=== PATIENT | male | born 1995 | race Caucasian/White ===

== ENCOUNTER 2019-01-17 21:02 | Emergency (ER) | payer OTHER ==
[2019-01-17] MEDS ORDERED: Lidocaine 1% with EPINEPHrine 1:100,000 50 ML MDV INFILT ONE (22:21)
[2019-01-17] MEDS ORDERED: Bacitracin Oint 1 GM U/D Packet TOP ONE (22:55)
--- NOTE | 2019-01-17 22:57 | EDM.PDOC ---
ED HPI GENERAL MEDICAL PROBLEM - General Chief Complaint: Laceration Stated Complaint: CUT HEAD Time Seen by Provider: 01/17/19 21:52 Source of Information: Reports: Patient History Limitations: Reports: No Limitations - History of Present Illness INITIAL COMMENTS - FREE TEXT/NARRATIVE: 23 yo male present to ER with laceration to scalp. He was removing wood from an old swing set and a piece of wood hit him on the top of the head. Denies LOC but states he did see stars . denies nausea. very mild current headache. He is Up to date on his tetanus head Pain Score (Numeric/FACES): 3 - Related Data Allergies Allergy/AdvReac Type Severity Reaction Status Date / Time amoxicillin Allergy Hives Verified 01/17/19 21:45 Home Meds: Home Meds NK [No Known Home Meds] 01/17/19 [History] Past Medical History Neurological History: Reports: Concussion - Past Surgical History Musculoskeletal Surgical History: Reports: Arthroscopic Knee Social & Family History - Tobacco Use Smoking Status *Q: Never Smoker - Caffeine Use Caffeine Use: Reports: None - Recreational Drug Use Recreational Drug Use: No ED ROS GENERAL - Review of Systems Review Of Systems: See Below Constitutional: Denies: Fever, Chills Respiratory: Denies: Shortness of Breath, Wheezing Cardiovascular: Denies: Chest Pain Skin: Reports: Wound ED EXAM, SKIN/RASH Exam: See Below Exam Limited By: No Limitations General Appearance: Alert, WD/WN, No Apparent Distress Respiratory/Chest: No Respiratory Distress Cardiovascular: Regular Rate, Rhythm Skin: Warm, Dry, Intact, Other (laceration to crown of head) Location, Skin: Head ED SKIN PROCEDURES - Laceration/Wound Repair [place] Head Lac/Wound length In cm: 3 Appearance: Superficial Distal NVT: Neuro & Vascular Intact Anesthetic Type: Local Local Anesthesia - Lidocaine (Xylocaine): 1% with EPI Local Anesthetic Volume: 2cc Skin Prep: Chlorhexidine (Hibiciens), Saline Exploration/Debridement/Repair: Wound Explored, In a Bloodless Field, Explored to Base, Minimal Debridement, No Foreign Material Found Closed with: [place] # of Sutures: 8 Course - Vital Signs Last Recorded V/S: Last Vital Signs Temp 35.7 C 01/17/19 21:48 Pulse 77 01/17/19 21:48 Resp 16 01/17/19 21:48 BP 131/73 01/17/19 21:48 Pulse Ox 93 L 01/17/19 21:48 - Orders/Labs/Meds Meds: Medications Discontinued Medications Generic Name Dose Route Start Last Admin Trade Name Roxy PRN Reason Stop Dose Admin Bacitracin 1 dose 01/17/19 22:55 Bacitracin Oint 1 Gm TOP 01/17/19 22:56 ONETIME ONE Lidocaine/Epinephrine 5 ml 01/17/19 22:21 01/17/19 22:25 Xylocaine 1% With Epinephrine 1:100,000 INFILT 01/17/19 22:22 5 ml ONETIME ONE Administration Departure - Departure Time of Disposition: 22:56 Disposition: Home, Self-Care 01 Condition: Good Clinical Impression: Scalp laceration Qualifiers: Encounter type: initial encounter Qualified Code(s): S01.01XA - Laceration without foreign body of scalp, initial encounter - Discharge Information *PRESCRIPTION DRUG MONITORING PROGRAM REVIEWED*: Not Applicable *COPY OF PRESCRIPTION DRUG MONITORING REPORT IN PATIENT ANG: Not Applicable Instructions: Stitches, [place], or Adhesive Wound Closure Referrals: PCP,None [Primary Care Provider] - Forms: ED Department Discharge Additional Instructions: kristofer out in 5-7 days ice tonight for swelling and pain wash with warm soapy water and pat dry may use topical antibiotics tylenol for headache
== END 2019-01-17 23:05 | disposition home or self-care (01) ==
LOC: JP.ED 21:02
DX: S01.01XA Laceration without foreign body of scalp, initial encounter (principal); Z88.1 Allergy status to other antibiotic agents; W22.8XXA Striking against or struck by other objects, initial encounter
CPT/HCPCS: 12002; 99282